=== PATIENT | female | born 1980 | race Caucasian/White ===

== ENCOUNTER 2023-02-17 17:47 | Emergency (ER) | payer MEDICAID ==
[~2023-02-17] VITALS: Ht 157.5 cm; Wt 68.5 kg
[~2023-02-17 17:47] MED LIST: MUPI1OIN4 TP
[2023-02-17 18:04] VITALS: BP 120/73; PULSE 103; RESP 16; TEMP 98.2; O2SAT 98
== END 2023-02-17 18:24 | disposition home or self-care (01) ==
LOC: ER 17:47
DX: Z48.1 Encounter for planned postprocedural wound closure (principal)
CPT/HCPCS: 99281

== ENCOUNTER 2023-02-22 09:22 | Emergency (ER) | payer MEDICAID ==
[~2023-02-22] VITALS: Ht 157.5 cm; Wt 53.0 kg
[2023-02-22 09:34] VITALS: BP 107/69; PULSE 85; RESP 16; TEMP 98.7; O2SAT 98
== END 2023-02-22 10:48 | disposition home or self-care (01) ==
LOC: ER 09:24
DX: S01.01XD Laceration without foreign body of scalp, subsequent encounter (principal); Z48.02 Encounter for removal of sutures; X58.XXXD Exposure to other specified factors, subsequent encounter
CPT/HCPCS: 99281